=== PATIENT | female | born 1955 | race Caucasian/White ===

== ENCOUNTER 2016-09-03 15:24 | Emergency (ER) | payer OTHER ==
[2016-09-03 15:37] VITALS: BP 174/105; PULSE 102; TEMP 98.2; BMI 23.4
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
[2016-09-03] MEDS ORDERED: KETOROLAC TROMETHAMINE 30 MG/1 ML VIAL IM ONE (16:40)
[2016-09-03] MEDS ORDERED: KETOROLAC TROMETHAMINE 30 MG/1 ML VIAL ONE (16:44)
== END 2016-09-03 17:40 | disposition home or self-care (01) ==
LOC: JERFT 15:24
PROC: 3E0233Z Introduction of Anti-inflammatory into Muscle, Percutaneous Approach (ICD-10-PCS; principal; 2016-09-03)
DX: S69.82XA Other specified injuries of left wrist, hand and finger(s), initial encounter (principal); R51 Headache; R11.0 Nausea; V43.62XA Car passenger injured in collision with other type car in traffic accident, initial encounter; W22.12XA Striking against or struck by front passenger side automobile airbag, initial encounter; Y92.414 Local residential or business street as the place of occurrence of the external cause; Y93.89 Activity, other specified
CPT/HCPCS: 73030-TC-LT; 73060-TC-LT; 73090-TC-LT; 73110-TC-LT; 73130-TC-LT; 99281-25

== ENCOUNTER 2018-04-15 08:18 | Day surgery (SDC) | payer OTHER ==
[2018-04-14 10:01] VITALS: BMI 22.6
[~2018-04-15 08:18] MED LIST: ACETAMINOPHEN 325 MG TABLET (FP) PO PRN; EPINEPHrine/PF 1 MG/1 ML (1:1,000) AMPULE SQ ONE
[2018-04-15] MEDS ORDERED: TROPICAMIDE 1% OPHTH SOLN 15 ML BOTTLE ONE (08:32)
[2018-04-15 08:52] VITALS: TEMP 97.8
[2018-04-15] MEDS: KETOROLAC TROMETHAMINE 0.5% EYE DROP 1 DROP DROPS OP SCH ×3 (09:00→09:10)
[2018-04-15] MEDS: PHENYLEPHRINE 2.5% OPHTH SOLN 15 ML BOTTLE OP SCH ×3 (09:00→09:10)
[2018-04-15] MEDS: CYCLOPENTOLATE HCL 1% OPHTH SOLN 2 ML BOTTLE OP SCH ×3 (09:00→09:10)
[2018-04-15] MEDS: OFLOXACIN 0.3% OPHTHALMIC SOLUTION 5 ML BOTTLE OP SCH ×3 (09:00→09:10)
[2018-04-15] MEDS: TROPICAMIDE 1% OPHTH SOLN 15 ML BOTTLE OP SCH ×3 (09:00→09:10)
[2018-04-15] MEDS ORDERED: TETRACAINE 0.5% OPHTH SOLN 2 ML BOTTLE OD ONE (09:56)
[2018-04-15] MEDS ORDERED: POVIDONE-IODINE 5% OPHTHALMIC PREP 30 ML SOLUTION OD ONE (09:57)
[2018-04-15] MEDS ORDERED: LIDOCAINE HCL 1% PRESERVATIVE FREE - 30ML VIAL IO ONE (10:04)
[2018-04-15] MEDS ORDERED: CHONDROITIN SU A/HYALUR SOD 1 KIT IO ONE (10:04)
[2018-04-15] MEDS ORDERED: BSS (NA/CA/MG/K) BALANCED SALT SOLUTION OPHTH SOLN 15 ML BOTTLE OD ONE (10:04)
[2018-04-15] MEDS ORDERED: EPINEPHrine/PF 1 MG/1 ML (1:1,000) AMPULE SQ ONE (10:11)
[2018-04-15 12:40] VITALS: BP 132/61; PULSE 72
--- NOTE | 2018-04-16 02:32 | SPEC ---
DATE OF OPERATION: 04/15/2018 OPERATION: Phacoemulsification with posterior chamber intraocular lens implantation, right eye. Lens used [id number], 22.0 Diopter power, Serial No. [id number]. PREOPERATIVE DIAGNOSIS: Cataract, right eye. POSTOPERATIVE DIAGNOSIS: Cataract, right eye. SURGEON: Heydi Yusuf M.D. ANESTHESIA: Topical MAC. COMPLICATIONS: None. PROCEDURE: The patient was brought to the operating room and correctly identified along with the operative site and the correct intraocular lens fuentes. The patient was then prepped and draped in the usual sterile fashion including 5% Betadine solution in the conjunctival sac and an eyelid drape. An eyelid speculum was then placed in the eye. A paracentesis port was created and approximately 0.5 mL of preservative free Lidocaine was then injected into the eye. Viscoelastic was then injected to inflate the anterior chamber. A temporal clear corneal wound was created. A continuous circular capsulorrhexis was performed. The nucleus was then hydrodissected with BSS and removed with phacoemulsification. The remaining cortical material was irrigated and aspirated. Viscoelastic was injected to inflate the capsular bag and the intraocular lens was then implanted into the capsular bag. The remaining Viscoelastic was irrigated and aspirated from the eye. The IOL was noted to be well centered and completely covered by the anterior capsulorrhexis. Topical vancomycin was placed and the eye patched and shielded. All wounds were tested and found to be watertight. No suture was placed. The eye was then shielded. The patient was then discharged from the operating room in stable condition. HEYDI YUSUF M.D. [id number]
== END 2018-04-15 11:40 | disposition home or self-care (01) ==
LOC: JASU-SURG 08:18
PROVIDERS: ATTEND Ophthalmology
PROC: 08RJ3JZ Replacement of Right Lens with Synthetic Substitute, Percutaneous Approach (ICD-10-PCS; principal; 2018-04-15 10:00)
DX: H26.9 Unspecified cataract (principal); E11.9 Type 2 diabetes mellitus without complications; Z79.84 Long term (current) use of oral hypoglycemic drugs

== ENCOUNTER 2018-08-14 14:33 | Emergency (ER) | payer OTHER ==
[2018-08-14 14:50] VITALS: BMI 23.2
--- NOTE | 2018-08-14 14:53 | PDOC ---
Rapid Medical Evaluation Chief Complaint: Chest Pain Time Seen by Provider: 08/14/18 14:48 Medical Evaluation: Allergies Allergy/AdvReac Type Severity Reaction Status Date / Time No Known Allergies Allergy Verified 08/14/18 14:48 08/14/18 14:48 I have performed a brief in-person evaluation of this patient. The patient presents with a chief complaint of: CP/ SOB/ leg swelling since yesterday night. No fevers Pertinent physical exam findings: + bilateral edema-some chest pain Left breast / I have ordered the following: CBC/ CMP/ Bnp CXR The patient will proceed to the ED for further evaluation. Discharge Disposition - Diagnosis Chest pain - Referrals - Patient Instructions - Post Discharge Activity
[2018-08-14] MEDS ORDERED: MAG HYDROX/AL HYDROX/SIMETH -MYLANTA- ORAL SUSPENSION PO ONE (16:18)
[2018-08-14] MEDS ORDERED: FAMOTIDINE 20 MG/50 ML IVPB 20 MG/50 ML MG IVPB ONE ×2 (16:18→16:35)
[2018-08-14] MEDS ORDERED: MAG HYDROX/AL HYDROX/SIMETH 30 ML UNIT-DOSE CUP ONE (16:34)
[2018-08-14 16:40] LABS: BASO % 1.1 % (0-2.0); EOS % 2.3 % (0-4.5); HEMOGLOBIN 10.4 GM/dL (10.7-15.3); MCH 27.1 pg (25.7-33.7); MCHC 31.6 g/dl (32.0-36.0); MEAN CELL VOLUME 85.9 fl (80-96); MEAN PLT VOLUME 9.1 fl (7.5-11.1); MONO % 8.7 % (3.8-10.2); NEUT % 65.9 % (42.8-82.8); PLATELET COUNT 352 K/MM3 (134-434); RBC 3.84 M/mm3 (3.60-5.2); RDW 15.8 % (11.6-15.6); WHITE BLOOD COUNT 6.8 K/mm3 (4.0-10.0)
[2018-08-14 17:07] LABS: ALBUMIN 2.6 g/dl (3.4-5.0); BILIRUBIN,TOTAL 0.2 mg/dL (0.2-1); CALCIUM 8.8 mg/dL (8.5-10.1); CREATININE 0.7 mg/dL (0.55-1.3); N-TERMINAL BNP 5434.6 pg/ml (5-125); POTASSIUM 4.4 mmol/L (3.5-5.1); TOT PROT 5.7 g/dl (6.4-8.2)
[2018-08-14] MEDS ORDERED: ASPIRIN 325 MG ENTERIC COATED TABLET (FP) PO ONE (17:32)
[2018-08-14] MEDS ORDERED: ASPIRIN 325 MG TABLET ONE (17:36)
--- NOTE | 2018-08-14 17:40 | PDOC ---
Documentation entered by Kelley Sarmiento SCRIBE, acting as scribe for Arden Helms MD. Arden Helms MD: This documentation has been prepared by the Guillermina michelle Daisy, SCRIBE, under my direction and personally reviewed by me in its entirety. I confirm that the documentation accurately reflects all work, treatment, procedures, and medical decision making performed by me. Attending Attestation - Resident Resident Name: James Smith - ED Attending Attestation I have performed the following: I have examined & evaluated the patient, The case was reviewed & discussed with the resident, I agree w/resident's findings & plan, Exceptions are as noted - HPI HPI: 08/14/18 16:23 The patient is a 63YOF with a PMH of HTN, HLD, DM who presents to the ED with chest pain at rest since last night. She reported the chest pain is worsened with eating and taking deep breaths. She is also complaining of chest pain radiating to her epigastrium with burning sensation. Pt states the pain is under her L breast, inside her chest. She was previously evaluated by Cardiology and is scheduled to have a stress ECHO tomorrow. Denies positive family cardiac history. Denies radiation of pain towards her back. Denies any h/ o DVT/PE. No leg swelling. No recent travel/immobilization. Denies diaphoresis, sob, fever, chills, N/V. Allergies: NKDA - Physicial Exam PE: 08/14/18 17:42 GENERAL: Awake, alert, and fully oriented, in no acute distress. HEAD: No signs of trauma EYES: PERRLA, EOMI, sclera anicteric, conjunctiva clear ENT: Auricles normal inspection, hearing grossly normal, nares patent, oropharynx clear without exudates. Moist mucosa NECK: Nontender, no stepoffs, Normal ROM, supple, no lymphadenopathy, JVD, or masses LUNGS: Breath sounds equal, clear to auscultation bilaterally. No wheezes, and no crackles HEART: Regular rate and rhythm, normal S1 and S2, no murmurs, rubs or gallops ABDOMEN: + RUQ TTP, No guarding, no rebound. No masses EXTREMITIES: Normal range of motion, no edema. No clubbing or cyanosis. No cords, erythema, or tenderness NEUROLOGICAL: Cranial nerves II through XII intact. 5/5 strength and sensation in all extremities, Normal speech, normal gait, normal cerebellar function SKIN: Warm, Dry, normal turgor, no rashes or lesions noted. - Critical Care Time Total Critical Care Time: 60 Critical Care Statement: The care of this patient involved high complexity decision making to prevent further life threatening deterioration of the patient 's condition and/or to evaluate & treat vital organ system(s) failure or risk of failure. - Medical Decision Making 08/14/18 17:43 63 F with L sided chest pain. WIll r/o ACS. EKG with no ischemic changes. Pt also found to have RUQ tenderness on exam. Will evaluate for isaias. - Labs, trop - RUQ sono - CXR 08/14/18 17:44 Trop >[address] Mejia, who would like pt to be ruled out for dissection prior to anticoagulation. Pt sent to CT for CTA
[2018-08-14] MEDS ORDERED: ACETAMINOPHEN 500 MG TABLET (FP) PO ONE (18:56)
[2018-08-14] MEDS ORDERED: ACETAMINOPHEN 325 MG TABLET (FP) ONE (19:07)
--- NOTE | 2018-08-14 19:15 | PDOC ---
*Physical Exam - Vital Signs Last Vital Signs Temp Pulse Resp BP Pulse Ox 98.4 F 96 H 16 153/85 96 08/14/18 14:48 08/14/18 19:01 08/14/18 19:01 08/14/18 19:01 08/14/18 19:01 ED Treatment Course - LABORATORY CBC & Chemistry Diagram: 08/14/18 16:00 08/14/18 14:50 - ADDITIONAL ORDERS Additional order review: Laboratory Results 08/14/18 08/14/18 17:30 14:50 D-Dimer 441 Sodium 140 Potassium 4.4 Chloride 108 H Carbon Dioxide 24 Anion Gap 8 BUN 17 Creatinine 0.7 Est GFR (CKD-EPI)AfAm 108.38 Est GFR (CKD-EPI)NonAf 93.51 Random Glucose 129 H Calcium 8.8 Total Bilirubin 0.2 AST 49 H ALT 28 Alkaline Phosphatase 171 H Creatine Kinase 344 H Creatine Kinase Index 8.4 H* CK-MB (CK-2) 29.2 H Troponin I 8.06 H* B-Natriuretic Peptide 5434.6 H Total Protein 5.7 L Albumin 2.6 L 08/14/18 16:00 RBC 3.84 MCV 85.9 MCHC 31.6 L RDW 15.8 H MPV 9.1 Neutrophils % 65.9 Lymphocytes % 22.0 Monocytes % 8.7 Eosinophils % 2.3 Basophils % 1.1 - Medications Given in the ED: ED Medications Discontinued Medications Generic Name Dose Route Start Last Admin Trade Name Freq PRN Reason Stop Dose Admin Acetaminophen 1,000 mg 08/14/18 18:56 08/14/18 19:09 Tylenol - PO 08/14/18 18:57 1,000 mg ONCE ONE Administration Al Hydroxide/Mg Hydroxide 30 ml 08/14/18 16:18 08/14/18 16:37 Mylanta Suspension - PO 08/14/18 16:19 30 ml ONCE ONE Administration Aspirin 325 mg 08/14/18 17:32 08/14/18 17:38 Ecotrin - PO 08/14/18 17:33 325 mg ONCE ONE Administration Famotidine/Sodium Chloride 20 mg in 50 mls @ 100 mls/hr 08/14/18 16:18 16:38 Pepcid 20 Mg Premixed Ivpb - IVPB 08/14/18 16:47 100 mls/hr ONCE ONE Administration Medical Decision Making - Medical Decision Making 08/14/18 19:10 Patient signed out by resident Dr. Smith In short patient 63 year old woman with history of HTN, HLD, DM presetns with chest pain since last niht and epigastric burning under her L breast. scheduled for a stress ECHO tomorrow. Found to have a RUQ abdominal tenderness trop > [address] Mejia recs r/o dissection patient with NSTEMI and once dissection r/o admin heparin and plavix plan for admit ED Course: 08/14/18 19:[address] Mejia patient will need transfer to [facility] for possible cardiac cath 08/14/18 20:45 Discussed case with [facility] who will accept [facility] intiate transfer *DC/Admit/Observation/Transfer Diagnosis at time of Disposition: Chest pain - Prescriptions Prescriptions: Esomeprazole Magnesium [Nexium 24Hr] 20 mg PO DAILY #30 capsule.dr - Referrals Referrals: Nathen Carrasco MD [Primary Care Provider] - - Patient Instructions - Post Discharge Activity
[2018-08-14] MEDS ORDERED: NITROGLYCERIN SUBLINGUAL 1/150 0.4 MG TAB SL ONE (19:17)
[2018-08-14] MEDS ORDERED: NITROGLYCERIN SUBLINGUAL 1/150 0.4 MG TAB ONE (19:26)
[2018-08-14] MEDS ORDERED: HEPARIN NA (PORCINE) 5,000 UNITS/ML 1ML VIAL IVPUSH PRN ×2 (19:38)
[2018-08-14] MEDS ORDERED: CLOPIDOGREL BISULFATE 300 MG TABLET PO ONE (19:38)
[2018-08-14] MEDS ORDERED: HEPARIN - 25,000 UNIT in SODIUM CHLORIDE 495 ML IV SCH (19:45)
--- NOTE | 2018-08-14 19:45 | CON.CARD ---
Consult Consult Specialty:: Cardiology Referred by:: Dr. Swartz Reason for Consultation:: NSTEMI - History of Present Illness Chief Complaint: chest pain for last 24 hours History of Present Illness: 63F DM, HTN, HLD with chest pain symptoms since March of 2018. Was referred to see dental billing specialist and stress test was planned for tomorrow. Last evening began having chest pain: left sided substernal at rest with SOB. Constant. No diaphoresis, N/V. In ER CK elevated, TnI 8. ECG without acute ST changes; ECG from 08/06 (outpt) did have NSST changes laterally. A Chest CTA was done: negative for PE or dissection, + Liver hemangioma. Hx obtained in Colombian and with help of daughters at bedside. - History Source History Provided By: Patient, Family Member Limitations to Obtaining History: No Limitations - Past Medical History BLACK PICKLER: No: Alzheimer's, CVA, Dementia, Migraine, Multiple Sclerosis, Peripheral Neuropathy, Parkinson's, Seizure, Syncope, TIA, Vertigo, Other Cardio/Vascular: Yes: HTN, Hyperlipdemia Pulmonary: No: Asthma, Bronchitis, Cancer, COPD, O2 Dependent, Pneumonia, Previously Intubated, Pulmonary Embolus, Pulmonary Fibrosis, Sleep Apnea, Other Gastrointestinal: No: Ascites, Cancer, Constipation, Crohn's Disease, Diverticulitis, Diverticulosis, Esophageal Varices, Gastritis, GERD, GI Bleed, Hemorrhoids, Hiatal Hernia, Inflamatory Bowel Disease, Irritable Bowel Disease, Pancreatitis, Peptic Ulcer Disease, Ulcerative Colitis, Other Hepatobiliary: No: Cirrhosis, Cholelithiasis, Cholecystitis, Choledocholithiasis , Hepatitis A, Hepatitis B, Hepatitis C, Other Renal/: No: Renal Failure, Renal Inusuff, BPH, Cancer, Hematuria, Hemodialysis , Neurogenic Bladder, Renal Calculi, UTI, Other Infectious Disease: No: AIDS, C-Diff, Herpes Zoster, HIV, MRSA, STD's, Tuberculosis, VREF, Other Psych: No: Addictions, Anxiety, Bipolar, Depression, Panic, Psychosis, Schizophrenia, Other Musculoskeletal: No: Bursitis, Chronic low back pain, Hemiparesis, Hemiplegia, Osteoarthritis, Paraplegia, Other Rheumatology: No: Fibromyalgia, Gout, Lupus, Rheumatoid Arthritis, Sarcoidosis, Vasculitis, Other Endocrine: Yes: Diabetes Mellitus - Alcohol/Substance Use Hx Alcohol Use: No - Smoking History Smoking history: Never smoked Have you smoked in the past 12 months: No - Social History Usual Living Arrangement: With Child History of Recent Travel: No Home Medications - Allergies Allergies/Adverse Reactions: Allergies Allergy/AdvReac Type Severity Reaction Status Date / Time No Known Allergies Allergy Verified 08/14/18 14:48 - Home Medications Home Medications: Ambulatory Orders Amlodipine Besylate [Norvasc -] 5 mg PO DAILY 04/15/18 Carboxymethyl/Gly/Poly80/Pf [Refresh Optive Michael-3 Drops] 1 each OP DAILY Carboxymethylcell/Glycerin/Pf [Lubricant 0.5-0.9% Eye Drops] 1 each OP BID 04/15 Cholecalciferol (Vitamin D3) [Vitamin D3] 5,000 unit PO DAILY 04/15/18 Empagliflozin [Jardiance] 25 mg PO TID 04/15/18 Ferrous Sulfate 325 mg PO BID 04/15/18 Gabapentin 300 mg PO HS 04/15/18 Gemfibrozil 600 mg PO BID 04/15/18 Losartan Potassium 50 mg PO DAILY 04/15/18 Metformin HCl [Glucophage] 1,000 mg PO BID 04/15/18 Wheeler-3 Fatty Acids [Wheeler-3] 1,000 mg PO DAILY 04/15/18 Esomeprazole Magnesium [Nexium 24Hr] 20 mg PO DAILY #30 capsule. 08/14/18 Family Disease History - Family Disease History Family History: Unremarkable Review of Systems Findings/Remarks: see HPI - Review of Systems Constitutional: reports: No Symptoms Eyes: reports: No Symptoms HENT: reports: No Symptoms Neck: reports: No Symptoms Cardiovascular: reports: Chest Pain, Shortness of Breath Respiratory: reports: SOB Gastrointestinal: denies: No Symptoms, Abdominal Pain, Bloating, Constipation, Diarrhea, Dysphagia, Indigestion, Melena, Nausea, Rectal Bleeding, Vomiting, Vomiting Blood, Other Genitourinary: denies: No Symptoms, Burning, Discharge, Dysuria, Flank Pain, Frequency, Hematuria, Incontinence, Lesions, Menses, Pain, Testicular Mass, Testicular Pain, Testicular Swelling, Urgency, Vaginal Bleeding, Other Breasts: denies: No Symptoms Reported, See HPI, Breast Implants, Discharge from Nipple, Lumps, Pain, Skin Changes, Other Musculoskeletal: denies: No Symptoms, Back Pain, Crepitus, Decreased ROM, Extremity Pain, Joint Pain, Joint Swelling, Muscle Pain, Muscle Cramps, Muscle Weakness, Other Integumentary: denies: No Symptoms, Blister, Bruising, Change in Color, Eczema, Erythema, Incision, Lesions, Lump, Pallor, Pruritis, Rash, Wound, Other Neurological: denies: No Symptoms, Change in LOC, Change in Speech, Confusion, Dizziness, Headache, Incoordination, Numbness, Parasthesia, Pre-Existing Deficit , Seizure, Syncope, Tremors, Unsteady Gait, Weakness, Other Endocrine: denies: No Symptoms, Excessive Sweating, Flushing, Increased Hunger, Increased Thirst, Intolerance to Cold, Intolerance to Heat, Unexplained Weight Gain, Unexplained Weight Loss, Other Hematology/Lymphatic: denies: No Symptoms, Easily Bruised, Excessive Bleeding, Swollen Glands, Other - Risk Factors Known Risk Factors: Yes: Diabetes Mellitus, Hypercholesterolemia, Hypertension Vital Signs: Vital Signs Temperature 98.4 F 08/14/18 14:48 Pulse Rate 96 H 08/14/18 19:01 Respiratory Rate 16 08/14/18 19:01 Blood Pressure 153/85 08/14/18 19:01 O2 Sat by Pulse Oximetry (%) 96 08/14/18 19:01 Constitutional: Yes: No Distress Eyes: Yes: Conjunctiva Clear Neck: Yes: Supple Respiratory: Yes: Other (decreased breath sounds bases) Gastrointestinal: Yes: Soft (NT) Cardiovascular: Yes: Regular Rate and Rhythm JVD: No Carotid Bruit: No PMI: Non-Displaced Heart Sounds: Yes: S1, S2 Edema: No (warm) Peripheral Pulses WNL: Yes Neurological: Yes: Alert, Oriented ...Motor Strength: WNL - Other Data Labs, Other Data: CBC, BMP 08/14/18 16:00 08/14/18 14:50 Troponin, BNP 08/14/18 14:50 Troponin I 8.06 H* B-Natriuretic Peptide 5434.6 H Troponin, BNP 08/14/18 14:50 Troponin I 8.06 H* B-Natriuretic Peptide 5434.6 H NSR, no acute ST changes Imaging - Results Chest X-ray: Image Reviewed Cat Scan: Report Reviewed, Image Reviewed EKG: Image Reviewed Assessment/Plan IMP: 1. NSTEMI w/ mild associated CHF 2. DM2 3. HTN 4. Hyperlipidemia REC: 1. ASA/ Plavix load/ start UFH gtts 2. High dose statin 3. Gentle diuresis 4. Serial ECGs, Cardiac enzymes and Echo 5. Transfer to [facility]U ([facility]-family request) where she will have cath in next 24 hours. Accepting MD: Dr. Cui
[2018-08-14] MEDS ORDERED: HEPARIN INFUSION - 25,000 UNITS/500 ML INFUS.BAG IVPB ONE (19:57)
[2018-08-14] MEDS ORDERED: CLOPIDOGREL BISULFATE 300 MG TABLET ONE (19:57)
[2018-08-14] MEDS ORDERED: HEPARIN NA (PORCINE) 5,000 UNITS/ML 1ML VIAL ONE (20:10)
[2018-08-14 21:48] VITALS: BP 151/68; PULSE 82
[2018-08-14 21:52] VITALS: TEMP 98
--- NOTE | 2018-08-14 23:09 | PDOC ---
History of Present Illness - General Chief Complaint: Chest Pain Stated Complaint: CHEST PAIN Time Seen by Provider: 08/14/18 14:48 Past History - Past Medical History Allergies/Adverse Reactions: Allergies Allergy/AdvReac Type Severity Reaction Status Date / Time No Known Allergies Allergy Verified 08/14/18 14:48 Home Medications: Ambulatory Orders Amlodipine Besylate [Norvasc -] 5 mg PO DAILY 04/15/18 Carboxymethyl/Gly/Poly80/Pf [Refresh Optive Michael-3 Drops] 1 each OP DAILY Carboxymethylcell/Glycerin/Pf [Lubricant 0.5-0.9% Eye Drops] 1 each OP BID 04/15 Cholecalciferol (Vitamin D3) [Vitamin D3] 5,000 unit PO DAILY 04/15/18 Empagliflozin [Jardiance] 25 mg PO TID 04/15/18 Ferrous Sulfate 325 mg PO BID 04/15/18 Gabapentin 300 mg PO HS 04/15/18 Gemfibrozil 600 mg PO BID 04/15/18 Losartan Potassium 50 mg PO DAILY 04/15/18 Metformin HCl [Glucophage] 1,000 mg PO BID 04/15/18 [place]-3 Fatty Acids [[place]-3] 1,000 mg PO DAILY 04/15/18 Esomeprazole Magnesium [Nexium 24Hr] 20 mg PO DAILY #30 capsule. 08/14/18 Anemia: No Asthma: No Cancer: No Cardiac Disorders: No CVA: No COPD: No CHF: No Dementia: No Diabetes: Yes GI Disorders: No Disorders: No HTN: Yes Hypercholesterolemia: Yes Liver Disease: No Seizures: No Thyroid Disease: No - Immunization History Immunization Up to Date: Yes - Suicide/Smoking/Psychosocial Hx Smoking History: Never smoked Have you smoked in the past 12 months: No Information on smoking cessation initiated: No Hx Alcohol Use: No Drug/Substance Use Hx: No Substance Use Type: None Hx Substance Use Treatment: No *Physical Exam - Vital Signs Last Vital Signs Temp Pulse Resp BP Pulse Ox 98.0 F 82 17 151/68 100 08/14/18 21:48 08/14/18 21:48 08/14/18 21:48 08/14/18 21:48 08/14/18 21:48 ED Treatment Course - LABORATORY CBC & Chemistry Diagram: 08/14/18 16:00 05/17/19 14:50 - ADDITIONAL ORDERS Additional order review: Laboratory Results 08/14/18 08/14/18 08/14/18 19:32 17:30 16:30 D-Dimer 441 Sodium Potassium Chloride Carbon Dioxide Anion Gap BUN Creatinine Est GFR (CKD-EPI)AfAm Est GFR (CKD-EPI)NonAf Random Glucose Calcium Total Bilirubin AST ALT Alkaline Phosphatase Creatine Kinase Creatine Kinase Index CK-MB (CK-2) Troponin I 9.69 H* B-Natriuretic Peptide Total Protein Albumin Lipase 105 08/14/18 14:50 D-Dimer Sodium 140 Potassium 4.4 Chloride 108 H Carbon Dioxide 24 Anion Gap 8 BUN 17 Creatinine 0.7 Est GFR (CKD-EPI)AfAm 108.38 Est GFR (CKD-EPI)NonAf 93.51 Random Glucose 129 H Calcium 8.8 Total Bilirubin 0.2 AST 49 H ALT 28 Alkaline Phosphatase 171 H Creatine Kinase 344 H Creatine Kinase Index 8.4 H* CK-MB (CK-2) 29.2 H Troponin I 8.06 H* B-Natriuretic Peptide 5434.6 H Total Protein 5.7 L Albumin 2.6 L Lipase 08/14/18 16:00 RBC 3.84 MCV 85.9 MCHC 31.6 L RDW 15.8 H MPV 9.1 Neutrophils % 65.9 Lymphocytes % 22.0 Monocytes % 8.7 Eosinophils % 2.3 Basophils % 1.1 - Medications Given in the ED: ED Medications Discontinued Medications Generic Name Dose Route Start Last Admin Trade Name Freq PRN Reason Stop Dose Admin Acetaminophen 1,000 mg 08/14/18 18:56 08/14/18 19:09 Tylenol - PO 08/14/18 18:57 1,000 mg ONCE ONE Administration Al Hydroxide/Mg Hydroxide 30 ml 08/14/18 16:18 08/14/18 16:37 Mylanta Suspension - PO 08/14/18 16:19 30 ml ONCE ONE Administration Aspirin 325 mg 08/14/18 17:32 08/14/18 17:38 Ecotrin - PO 08/14/18 17:33 325 mg ONCE ONE Administration Clopidogrel Bisulfate 600 mg 08/14/18 19:38 08/14/18 20:16 Plavix - PO 08/14/18 19:39 600 mg ONCE ONE Administration Heparin Sodium (Porcine) 5,000 unit 08/14/18 19:38 08/14/18 20:15 Heparin - IVPUSH 5,000 unit PRN PRN Administration Heparin Famotidine/Sodium Chloride 20 mg in 50 mls @ 100 mls/hr 08/14/18 16:18 16:38 Pepcid 20 Mg Premixed Ivpb - IVPB 08/14/18 16:47 100 mls/hr ONCE ONE Administration Heparin Sodium (Porcine) 25, 500 mls @ 16 mls/hr 08/14/18 19:45 08/14/18 20: 15 000 unit/ Sodium Chloride IV 800 unit/hr TITR ANGELINA 16 mls/hr Administration Protocol 800 UNIT/HR Nitroglycerin 0.4 mg 08/14/18 19:17 08/14/18 19:28 Nitrostat - SL 08/14/18 19:18 0.4 mg ONCE ONE Administration *DC/Admit/Observation/Transfer Diagnosis at time of Disposition: Chest pain - Discharge Dispostion Disposition: TRANSFER ACUTE CARE/OTHER HOSP Condition at time of disposition: Stable - Prescriptions Prescriptions: Esomeprazole Magnesium [Nexium 24Hr] 20 mg PO DAILY #30 capsule.dr - Referrals Referrals: Nathen Carrasco MD [Primary Care Provider] - - Patient Instructions - Post Discharge Activity
--- NOTE | 2018-08-15 11:06 | EKG ---
Test Reason : Blood Pressure : / mmHG Vent. Rate : 090 BPM Atrial Rate : 090 BPM P-R Int : 140 ms QRS Dur : 074 ms QT Int : 354 ms P-R-T Axes : 065 077 094 degrees QTc Int : 433 ms NORMAL SINUS RHYTHM POSSIBLE LEFT ATRIAL ENLARGEMENT NONSPECIFIC ST ABNORMALITY ABNORMAL ECG NO PREVIOUS ECGS AVAILABLE Confirmed by ALYSSA WILBURN MD ([id number]) on 08/15/2018 11:06:23 AM Referred By: Confirmed By:ALYSSA WILBURN MD
== END 2018-08-14 21:52 | disposition short-term general hospital (02) ==
LOC: JER 14:33
PROC: 3E033GC Introduction of Other Therapeutic Substance into Peripheral Vein, Percutaneous Approach (ICD-10-PCS; principal; 2018-08-14)
PROC: 3E033GC Introduction of Other Therapeutic Substance into Peripheral Vein, Percutaneous Approach (ICD-10-PCS; 2018-08-14)
DX: I10 Essential (primary) hypertension (principal); E11.9 Type 2 diabetes mellitus without complications; Z79.84 Long term (current) use of oral hypoglycemic drugs
CPT/HCPCS: 36415; 71275-TC; 74177-TC; 80053; 82550; 82553; 83690; 83880; 84484; 85025; 85379; 93005; 93010; 96365; 96375; 99285-25; J1644

== ENCOUNTER 2022-04-03 04:24 | Day surgery (SDC) | payer MEDICARE, OTHER ==
[2022-03-26 18:14] VITALS: BMI 23.2
[~2022-04-03 04:24] MED LIST changes: -ACETAMINOPHEN 325 MG TABLET (FP) PO PRN; +BSS (NA/CA/MG/K) BALANCED SALT SOLUTION OPHTH SOLN 15 ML BOTTLE OS ONE; +CHONDROITIN SU A/HYALUR SOD 1 KIT IO ONE; +EPINEPHrine 1:1,000 1,000 MCG/ML ML SQ ONE; -EPINEPHrine/PF 1 MG/1 ML (1:1,000) AMPULE SQ ONE; +LIDOCAINE 1% P/F 10 MG/ML VIAL PNB ONE; +POVIDONE-IODINE 5% OPHTHALMIC PREP 30 ML SOLUTION OS ONE; +TETRACAINE 0.5% OPHTH SOLN 2 ML BOTTLE OS ONE; +TRYPAN BLUE 0.5 ML DISP.SYRIN IO ONE
[2022-04-03] MEDS ORDERED: TROPICAMIDE 1% OPHTH SOLN 15 ML BOTTLE ONE (06:37)
[2022-04-03] MEDS ORDERED: CYCLOPENTOLATE HCL 1% OPHTH SOLN 2 ML BOTTLE ONE (06:39)
[2022-04-03] MEDS ORDERED: OFLOXACIN 0.3% OPHTHALMIC SOLUTION 5 ML BOTTLE ONE (06:39)
[2022-04-03] MEDS ORDERED: KETOROLAC TROMETHAMINE 0.5% EYE DROP 1 DROP DROPS ONE (06:39)
[2022-04-03 06:48] VITALS: RESP 18
[2022-04-03] MEDS ORDERED: VANCOMYCIN 500 MG VIAL (RESTRICTED TO ID ONLY) ONE (07:16)
[2022-04-03] MEDS ORDERED: TETRACAINE 0.5% OPHTH SOLN 2 ML BOTTLE ONE (07:17)
[2022-04-03] MEDS ORDERED: LIDOCAINE HCL/PF 1% SDV 5ML VIAL ONE (07:17)
[2022-04-03] MEDS ORDERED: BSS (NA/CA/MG/K) BALANCED SALT SOLUTION OPHTH SOLN 15 ML BOTTLE ONE (07:18)
[2022-04-03] MEDS ORDERED: POVIDONE-IODINE 5% OPHTHALMIC PREP 30 ML SOLUTION ONE (07:18)
[2022-04-03] MEDS ORDERED: TRYPAN BLUE 0.5 ML DISP.SYRIN ONE (07:19)
[2022-04-03] MEDS ORDERED: ACETAMINOPHEN 325 MG TABLET (FP) PO PRN (07:48)
[2022-04-03] MEDS: TROPICAMIDE 1% OPHTH SOLN 15 ML BOTTLE OP SCH ×3 (08:00→08:10)
[2022-04-03] MEDS: KETOROLAC TROMETHAMINE 0.5% EYE DROP 1 DROP DROPS OP SCH ×3 (08:00→08:10)
[2022-04-03] MEDS: OFLOXACIN 0.3% OPHTHALMIC SOLUTION 5 ML BOTTLE OP SCH ×3 (08:00→08:10)
[2022-04-03] MEDS: PHENYLEPHRINE 2.5% OPHTH SOLN 15 ML BOTTLE OP SCH ×3 (08:00→08:10)
[2022-04-03] MEDS: CYCLOPENTOLATE HCL 1% OPHTH SOLN 2 ML BOTTLE OP SCH ×3 (08:00→08:10)
[2022-04-03] MEDS ORDERED: MIDAZOLAM HCL 2 MG/2 ML SINGLE DOSE VIAL ONE (08:01)
[2022-04-03] MEDS ORDERED: TETRACAINE 0.5% OPHTH SOLN 2 ML BOTTLE OS ONE (08:04)
[2022-04-03] MEDS ORDERED: POVIDONE-IODINE 5% OPHTHALMIC PREP 30 ML SOLUTION OS ONE (08:10)
[2022-04-03] MEDS ORDERED: BSS (NA/CA/MG/K) BALANCED SALT SOLUTION OPHTH SOLN 15 ML BOTTLE OS ONE (08:13)
[2022-04-03] MEDS ORDERED: LIDOCAINE 1% P/F 10 MG/ML VIAL PNB ONE (08:16)
[2022-04-03] MEDS ORDERED: CHONDROITIN SU A/HYALUR SOD 1 KIT IO ONE (08:17)
[2022-04-03] MEDS ORDERED: EPINEPHrine 1:1,000 1,000 MCG/ML ML SQ ONE (08:22)
[2022-04-03] MEDS ORDERED: ACETAMINOPHEN 325 MG TABLET (FP) ONE (08:59)
[2022-04-03 10:43] VITALS: PULSE 60
[2022-04-03 10:49] VITALS: BP 144/64; TEMP 98
== END 2022-04-03 09:40 | disposition home or self-care (01) ==
LOC: JASU-SURG 04:24
PROVIDERS: ATTEND Ophthalmology
PROC: 08RK3JZ Replacement of Left Lens with Synthetic Substitute, Percutaneous Approach (ICD-10-PCS; principal; 2022-04-03 08:00)
DX: H26.9 Unspecified cataract (principal)
CPT/HCPCS: 66984; V2632